=== PATIENT | female | born 1970 | race African-American/Black ===

== ENCOUNTER 2022-06-19 15:40 | Observation (INO) | payer BC, SELFPAY ==
[~2022-06-19 15:40] MED LIST: Iopamidol 370 76% 100 ML VIAL ONE
[2022-06-19 16:24] LABS: #Eosinphils 0.1 10x3/uL (0.0-0.5); #Monocytes 0.4 10x3/uL (0.0-1.1); #Neutrophils 4.2 10x3/uL (1.5-8.4); %Basophils 0.3 % (0.0-2.0); %Eosinophils 1.7 % (0.0-6.0); %Lymphocytes 27.8 % (18.0-47.0); %Monocytes 6.3 % (0.0-10.0); %Neutrophils 63.7 % (40.0-75.0); Hemoglobin 11.7 g/dL (12.0-15.5); Mean Corpuscular HGB CONC 32.1 g/dL (32.0-36.0); Mean Corpuscular Hemoglobin 28.1 pg (27.0-33.0); Mean Corpuscular Volume 87.7 fl (81.6-98.3); Mean Platelet Volume 9.9 fl (7.4-10.4); Platelet Count 277 10x3/uL (150-450); RBC Distribution Width 14.1 % (11.5-14.5); Red Blood Cell (RBC) Count 4.16 10x6/uL (3.90-5.03); White Blood Cell (WBC) Count 6.6 10x3/uL (3.5-10.5)
[2022-06-19 16:32] LABS: BHCG - Serum Negative (NEGATIVE); Pregs Control Background? CLEAR/WHITE (CLR/WHITE); Pregs Control Bar Appear? YES (CONTROL BAR)
[2022-06-19 16:35] LABS: Acetaminophen Less than 10.0 mcg/mL (10.0-30.0); Alcohol Less than 10 mg/dL (Less than 10); Salicylate Less than 8.0 mg/dL (15.0-30.0)
[2022-06-19 16:37] LABS: ALT (SGPT) 19 U/L (8-55); AST (SGOT) 18 U/L (5-34); Albumin 4.2 g/dL (3.5-5.0); Alkaline Phosphatase 56 U/L (40-110); Anion Gap 14 mmol/L (10-20); BUN (Urea Nitrogen) 13 mg/dL (9.8-20.1); Bilirubin, Total 0.3 mg/dL (0.2-1.2); CK (CPK) 158 U/L (29-168); Calc. Creatinine Clearance 0 mL/min (70-130); Carbon Dioxide 23 mmol/L (22-29); Chloride 106 mmol/L (98-107); Estimated GFR 92; Glucose 99 mg/dL (70-105); Lipase 18 U/L (8-78); Potassium 3.9 mmol/L (3.5-5.1); Protein, Total 7.2 g/dL (6.0-8.3); Sodium 139 mmol/L (136-145)
[2022-06-19 18:28] LABS: Bilirubin Neg (Negative); Blood, Urine 250 (Negative); Clarity Slightly Cloudy (Clear); Glucose, Urine (Dipstick) Normal (Negative); Ketone, Urine 50 mg/dL (Negative); Leukocyte Negative (Negative); Nitrite Negative (Negative); Protein, Urine (Dipstick) 30 mg/dl (Neg-Trace); Specific Gravity, Urine 1.025 (1.002-1.036); Urobilinogen Normal mg/dL (Less than 2)
[2022-06-19 18:36] LABS: Amphetamine Not Detected (NotDetected); Barbiturates Screen Not Detected (NotDetected); Benzodiazepine Screen Not Detected (NotDetected); Cocaine Metabolite Screen Not Detected (NotDetected); Methadone Not Detected (NotDetected); Methamphetamine Not Detected (NotDetected); Opiate Screen Not Detected (NotDetected); Oxycodone Screen Not Detected (NotDetected); Phencyclidine (PCP) Not Detected (NotDetected); THC/Cannabinoid Screen Not Detected (NotDetected); Tricyclic Screen Not Detected (NotDetected)
[2022-06-19 18:46] LABS: Bacteria/HPF 1+ HPF (None Seen); WBC/HPF 0-3 HPF (0-3)
[2022-06-19] MEDS ORDERED: Aspirin Chewable 81 MG TAB ONE (20:39)
[2022-06-19 22:50] VITALS: BMI 39.2
[2022-06-19 23:54] LABS: SARS-CoV-2 NAA Rapid Test DETECTED (NotDetected)
[2022-06-20] MEDS ORDERED: Acetaminophen 325 MG TAB PO PRN (00:10)
[2022-06-20] MEDS ORDERED: Sodium Chloride 0.9% 1,000 ML IV SCH (00:30)
[2022-06-20] MEDS: HYDROcodone/Acetaminophen 5/325 mg Tablet PO PRN ×2 (00:42→21:57)
[2022-06-20 01:02] LABS: Magnesium 1.9 mg/dL (1.6-2.6)
[2022-06-20 05:37] LABS: #Eosinphils 0.3 10x3/uL (0.0-0.5); #Monocytes 0.6 10x3/uL (0.0-1.1); %Basophils 0.5 % (0.0-2.0); %Lymphocytes 41.3 % (18.0-47.0); %Monocytes 8.4 % (0.0-10.0); %Neutrophils 45.6 % (40.0-75.0); Hemoglobin 10.8 g/dL (12.0-15.5); Mean Corpuscular Hemoglobin 28.2 pg (27.0-33.0); Mean Corpuscular Volume 88.3 fl (81.6-98.3); Mean Platelet Volume 10.3 fl (7.4-10.4); Platelet Count 255 10x3/uL (150-450); RBC Distribution Width 14.3 % (11.5-14.5); Red Blood Cell (RBC) Count 3.83 10x6/uL (3.90-5.03); White Blood Cell (WBC) Count 6.5 10x3/uL (3.5-10.5)
[2022-06-20 05:44] LABS: Anion Gap 13 mmol/L (10-20); BUN (Urea Nitrogen) 14 mg/dL (9.8-20.1); Calc. Creatinine Clearance 136 mL/min (70-130); Calcium 8.9 mg/dL (7.8-10.44); Carbon Dioxide 23 mmol/L (22-29); Chloride 107 mmol/L (98-107); Estimated GFR 100; Glucose 90 mg/dL (70-105); Potassium 3.8 mmol/L (3.5-5.1); Sodium 139 mmol/L (136-145)
[2022-06-20 05:50] LABS: Troponin I 0.015 ng/mL (< 0.028)
[2022-06-20] MEDS: metFORMIN 500 MG TAB PO SCH ×2 (08:56→20:14)
[2022-06-20] MEDS ORDERED: Enoxaparin Sodium 40 MG/0.4 ML SYRINGE SC SCH (09:00)
[2022-06-20] MEDS: buPROPion HCl 100 MG TAB PO SCH (09:03)
[2022-06-20] MEDS: hydrALAZINE 25 MG TAB PO SCH (09:04)
[2022-06-20 12:54] LABS: Hemoglobin A1c 5.8 % (4.0-6.0)
[2022-06-20] MEDS ORDERED: Atenolol 25 MG TAB PO SCH (21:00)
[2022-06-20] MEDS ORDERED: traZODone HCl 50 MG TAB PO SCH (21:00)
[2022-06-21] MEDS ORDERED: diphenhydrAMINE 25 MG CAP PO SCH (04:00)
[2022-06-21 06:34] LABS: Iron 55 ug/dL (50-170); Iron Binding Capacity, Total 233 mcg/dL (265-497)
[2022-06-21 06:37] LABS: ALT (SGPT) 14 U/L (8-55); AST (SGOT) 14 U/L (5-34); Albumin 3.5 g/dL (3.5-5.0); Alkaline Phosphatase 50 U/L (40-110); Anion Gap 10 mmol/L (10-20); BUN (Urea Nitrogen) 10 mg/dL (9.8-20.1); Bilirubin, Direct 0.1 mg/dL (0.1-0.3); Bilirubin, Total 0.2 mg/dL (0.2-1.2); Calc. Creatinine Clearance 136 mL/min (70-130); Calcium 8.9 mg/dL (7.8-10.44); Carbon Dioxide 26 mmol/L (22-29); Cardiac Risk 5.1 (Less than 4.5); Chloride 107 mmol/L (98-107); Cholesterol 233 mg/dl (< 200 Desired); Estimated GFR 100; Glucose 99 mg/dL (70-105); HDL Cholesterol 46 mg/dL (>60 Neg Risk); Iron 55 ug/dL (50-170); Iron Binding Capacity, Total 234 mcg/dL (265-497); LDL Cholesterol, Calculated 172 mg/dL; Magnesium 1.7 mg/dL (1.6-2.6); Potassium 4.3 mmol/L (3.5-5.1); Protein, Total 6.1 g/dL (6.0-8.3); Sodium 139 mmol/L (136-145); Triglycerides 73 mg/dL (Less than 150)
[2022-06-21 07:06] LABS: #Eosinphils 0.2 10x3/uL (0.0-0.5); #Monocytes 0.4 10x3/uL (0.0-1.1); #Neutrophils 2.2 10x3/uL (1.5-8.4); %Basophils 0.6 % (0.0-2.0); %Eosinophils 3.9 % (0.0-6.0); %Lymphocytes 42.2 % (18.0-47.0); %Monocytes 7.7 % (0.0-10.0); %Neutrophils 45.4 % (40.0-75.0); Hemoglobin 11.3 g/dL (12.0-15.5); Mean Corpuscular HGB CONC 32.2 g/dL (32.0-36.0); Mean Corpuscular Hemoglobin 28.6 pg (27.0-33.0); Mean Corpuscular Volume 88.9 fl (81.6-98.3); Mean Platelet Volume 10.2 fl (7.4-10.4); Platelet Count 247 10x3/uL (150-450); Red Blood Cell (RBC) Count 3.95 10x6/uL (3.90-5.03); White Blood Cell (WBC) Count 4.8 10x3/uL (3.5-10.5)
[2022-06-21] MEDS: metFORMIN 500 MG TAB PO SCH (09:45)
[2022-06-21] MEDS: buPROPion HCl 100 MG TAB PO SCH (09:45)
[2022-06-21] MEDS: hydrALAZINE 25 MG TAB PO SCH (09:46)
[2022-06-21 12:00] VITALS: BP 145/75; TEMP 98
[2022-06-21] MEDS ORDERED: Albuterol Sulfate 2.5 mg/3 ml Neb NEB PRN (14:49)
== END 2022-06-21 14:00 | disposition home or self-care (01) ==
LOC: CSHERS 15:40 → UNDOADMOB 22:06 → CSHTELE 22:06
PROVIDERS: ADMIT Family Medicine; ATTEND Family Medicine
DX: R55 Syncope and collapse (principal); U07.1 COVID-19; N95.0 Postmenopausal bleeding; D25.9 Leiomyoma of uterus, unspecified; R56.9 Unspecified convulsions; I10 Essential (primary) hypertension; G47.33 Obstructive sleep apnea (adult) (pediatric); R53.1 Weakness; E66.01 Morbid (severe) obesity due to excess calories; Z68.39 Body mass index [BMI] 39.0-39.9, adult; D64.9 Anemia, unspecified; R31.9 Hematuria, unspecified; R47.01 Aphasia; E11.9 Type 2 diabetes mellitus without complications; Z79.899 Other long term (current) drug therapy
CPT/HCPCS: 36415; 36416; 70551; 71045; 71275; 76770; 76856; 80048; 80053; 80061; 80076; 80306; 80307; 81003; 81015; 82550; 82728; 83036; 83540; 83550; 83605; 83690; 83735; 84443; 84484; 84703; 85025; 85046; 85379; 86850; 86900; 86901; 93005; 93010; 93306; 93880; 93970; 96372; G0378; J1650; J7050; Q9967; U0002